=== PATIENT | male | born 1985 | race Caucasian/White ===

== ENCOUNTER 2017-10-12 07:56 | Emergency (ER) | payer MEDICAID ==
[~2017-10-12] VITALS: Ht 182.9 cm; Wt 78.2 kg
[2017-10-12 08:34] VITALS: BP 133/73
== END 2017-10-12 08:34 | disposition home or self-care (01) ==
LOC: ER 07:56
DX: Z02.89 Encounter for other administrative examinations (principal); F15.90 Other stimulant use, unspecified, uncomplicated; Z60.2 Problems related to living alone
CPT/HCPCS: 99281

== ENCOUNTER 2017-11-14 14:35 | Emergency (ER) | payer MEDICAID ==
[~2017-11-14] VITALS: Ht 167.6 cm; Wt 41.3 kg
[2017-11-14 15:54] LABS: BASOPHILS % (AUTO) 0.3 % (0-1); EOSINOPHILS # (AUTO) 0.3 X10'3 (0-0.9); EOSINOPHILS % (AUTO) 3.1 % (0-6); HEMATOCRIT 45.2 % (42.0-52.0); HEMOGLOBIN 15.7 g/dl (14.0-17.9); LYMPHOCYTES # (AUTO) 1.8 X10'3 (1.1-4.8); LYMPHOCYTES % (AUTO) 19.2 % (21-51); MEAN CORPUSCULAR HEMOGLOBIN 32.5 PG (27.0-31.0); MEAN CORPUSCULAR HGB CONC 34.7 % (33.0-36.5); MEAN CORPUSCULAR VOLUME 93.7 FL (78-98); MEAN PLATELET VOLUME 8.8 FL (7.4-10.4); MONOCYTES # (AUTO) 0.9 X10'3 (0-0.9); MONOCYTES % (AUTO) 9.9 % (2-12); NEUTROPHILS # (AUTO) 6.4 X10'3 (1.8-7.7); NEUTROPHILS % (AUTO) 67.5 % (42-75); PLATELET COUNT 187 X10'3 (140-440); RED BLOOD COUNT 4.83 X10'6 (4.70-6.10); WHITE BLOOD COUNT 9.4 X10'3 (4.5-11.0)
[2017-11-14 16:10] LABS: ALANINE AMINOTRANSFERASE 43 U/L (12-78); ALBUMIN 4.3 G/DL (3.4-5.0); ALBUMIN/GLOBULIN RATIO 1.2 (1.1-1.5); ALKALINE PHOSPHATASE 67 IU/L (46-116); ANION GAP 11 (8-16); ASPARTATE AMINO TRANSFERASE 27 U/L (10-37); BILIRUBIN,TOTAL 1.5 MG/DL (0.1-1.0); BLOOD UREA NITROGEN 30 MG/DL (7-18); BUN/CREATININE RATIO 21.3 (5.4-32.0); CHLORIDE 108 MMOL/L (99-107); CREATININE 1.41 MG/DL (0.60-1.10); GLUCOSE 121 MG/DL (70-104); POTASSIUM 4.1 MMOL/L (3.5-5.1); SODIUM 145 MMOL/L (135-145); TOTAL CARBON DIOXIDE 25.9 MMOL/L (24-32); TOTAL PROTEIN 7.8 G/DL (6.4-8.2); eGFR 58 ML/MIN
[2017-11-14 16:15] LABS: PARTIAL THROMBOPLASTIN TIME 25 SECONDS (22-32); PROTHROMBIN TIME 10.5 SECONDS (9.0-12.0)
[2017-11-14] MEDS ORDERED: HYDR-3686 PO (19:03)
[2017-11-14] MEDS ORDERED: DOXY100C43 PO (19:03)
[2017-11-14] MEDS ORDERED: hydrOXYzine 25 MG tablet PO ONE (19:05)
[2017-11-14 19:14] VITALS: BP 134/79
== END 2017-11-14 19:19 | disposition home or self-care (01) ==
LOC: ER 14:36
DX: L73.9 Follicular disorder, unspecified (principal); F15.10 Other stimulant abuse, uncomplicated; F17.210 Nicotine dependence, cigarettes, uncomplicated; Z60.2 Problems related to living alone
CPT/HCPCS: 36415; 80053; 84484; 85025; 85610; 85730; 93005; 99285; Q0177

== ENCOUNTER 2017-11-16 06:53 | Emergency (ER) | payer MEDICAID ==
[~2017-11-16] VITALS: Ht 185.4 cm; Wt 86.0 kg
[~2017-11-16 06:53] MED LIST: DOXY100C43 PO; HYDR-3686 PO
[2017-11-16 07:05] VITALS: BP 106/43
[2017-11-16 07:33] LABS: CLARITY,URINE CLEAR (Clear); COLOR,URINE YELLOW (Yellow); GLUCOSE, URINE NEGATIVE (Neg); KETONES,URINE 15 mg/dl (Neg); LEUKOCYTE ESTERASE ,URINE NEGATIVE (Neg); NITRITES, URINE NEGATIVE (Neg); OCCULT BLOOD,URINE NEGATIVE (Neg); PROTEIN,URINE 30 mg/dl (Neg); UROBILINOGEN,URINE 0.2 E.U/dL (0.2-1.0)
[2017-11-16 07:41] LABS: URINE AMPHETAMINE SCREEN POSITIVE (Neg); URINE BARBITUATE SCREEN NEGATIVE (Neg); URINE BENZODIAZEPINES SCREEN NEGATIVE (Neg); URINE CANNABINOID SCREEN NEGATIVE (Neg); URINE COCAINE SCREEN NEGATIVE (Neg); URINE METHADONE SCREEN NEGATIVE (Neg); URINE OPIATE SCREEN POSITIVE (Neg); URINE PHENCYCLIDINE SCREEN NEGATIVE (Neg)
[2017-11-16 07:46] LABS: UA COLLECTION TYPE VOIDED
[2017-11-16 07:47] LABS: BACTERIA,URINE NONE SEEN /HPF (Neg); MUCUS STRANDS FEW /LPF (Neg); RBC,URINE NONE SEEN /HPF (0-2); SQUAMOUS EPITHELIAL CELL,UR NONE SEEN /LPF (FEW); WBC,URINE NONE SEEN /HPF (0-4)
[2017-11-16 08:15] LABS: BASOPHILS % (AUTO) 0.3 % (0-1); EOSINOPHILS # (AUTO) 0.3 X10'3 (0-0.9); EOSINOPHILS % (AUTO) 1.9 % (0-6); HEMATOCRIT 42.5 % (42.0-52.0); HEMOGLOBIN 14.9 g/dl (14.0-17.9); LYMPHOCYTES # (AUTO) 0.7 X10'3 (1.1-4.8); LYMPHOCYTES % (AUTO) 4.4 % (21-51); MEAN CORPUSCULAR HEMOGLOBIN 32.6 PG (27.0-31.0); MEAN CORPUSCULAR HGB CONC 35.2 % (33.0-36.5); MEAN CORPUSCULAR VOLUME 92.5 FL (78-98); MEAN PLATELET VOLUME 8.9 FL (7.4-10.4); MONOCYTES # (AUTO) 0.8 X10'3 (0-0.9); MONOCYTES % (AUTO) 4.7 % (2-12); NEUTROPHILS # (AUTO) 14.5 X10'3 (1.8-7.7); NEUTROPHILS % (AUTO) 88.7 % (42-75); PLATELET COUNT 156 X10'3 (140-440); RED BLOOD COUNT 4.59 X10'6 (4.70-6.10); RED CELL DISTRIBUTION WIDTH 13.2 % (11.5-14.5); WHITE BLOOD COUNT 16.4 X10'3 (4.5-11.0)
[2017-11-16 08:26] LABS: ACETAMINOPHEN < 2.0 UG/ML (10-30); ALANINE AMINOTRANSFERASE 45 U/L (12-78); ALBUMIN 4.4 G/DL (3.4-5.0); ALBUMIN/GLOBULIN RATIO 1.4 (1.1-1.5); ALKALINE PHOSPHATASE 56 IU/L (46-116); ANION GAP 11 (8-16); ASPARTATE AMINO TRANSFERASE 41 U/L (10-37); BILIRUBIN,TOTAL 2.6 MG/DL (0.1-1.0); BLOOD UREA NITROGEN 35 MG/DL (7-18); BUN/CREATININE RATIO 24.6 (5.4-32.0); CALCIUM 8.9 MG/DL (8.5-10.1); CHLORIDE 104 MMOL/L (99-107); CREATINE KINASE 792 U/L (39-308); CREATININE 1.42 MG/DL (0.60-1.10); ETHANOL < 0.010 GM/DL (0.0-0.010); GLUCOSE 67 MG/DL (70-104); POTASSIUM 3.1 MMOL/L (3.5-5.1); SODIUM 141 MMOL/L (135-145); TOTAL CARBON DIOXIDE 25.9 MMOL/L (24-32); TOTAL PROTEIN 7.5 G/DL (6.4-8.2); eGFR 58 ML/MIN
[2017-11-16] MEDS ORDERED: normal saline 1000ML IV soln IVB ONE ×2 (08:30)
[2017-11-16] MEDS ORDERED: LORazepam 2 mg/ml vial IV ONE (08:30)
[2017-11-16] MEDS ORDERED: potassium Cl 20 mEq SR tablet PO STA (09:16)
[2017-11-16] MEDS ORDERED: PANT-47 PO (10:23)
[2017-11-16] MEDS ORDERED: ONDA8TAB9 PO (10:23)
== END 2017-11-16 09:47 | disposition left against medical advice (07) ==
LOC: ER 06:54
DX: F99 Mental disorder, not otherwise specified (principal); F15.10 Other stimulant abuse, uncomplicated; Z59.0 Homelessness
CPT/HCPCS: 36415; 80053; 80305; 80320; 80329; 81001; 82550; 84443; 85025; 96360; 99284; J7030

== ENCOUNTER 2017-12-19 01:30 | Emergency (ER) | payer MEDICAID, OTHER ==
[~2017-12-19] VITALS: Ht 182.9 cm; Wt 78.4 kg
[~2017-12-19 01:30] MED LIST changes: -DOXY100C43 PO; -HYDR-3686 PO; +NEOM28.37 TOP; +ONDA8TAB9 PO; +PANT-47 PO
[2017-12-19 07:01] VITALS: BP 124/68
== END 2017-12-19 07:03 | disposition home or self-care (01) ==
LOC: ER 01:31
DX: L02.92 Furuncle, unspecified (principal); F15.10 Other stimulant abuse, uncomplicated; Z79.899 Other long term (current) drug therapy; Z60.2 Problems related to living alone
CPT/HCPCS: 99281

== ENCOUNTER 2018-02-19 00:48 | Emergency (ER) | payer MEDICAID ==
[~2018-02-19] VITALS: Ht 182.9 cm; Wt 80.0 kg
[2018-02-19 03:13] VITALS: BP 114/68
== END 2018-02-19 03:26 | disposition left against medical advice (07) ==
LOC: ER 00:49
DX: R07.89 Other chest pain (principal); Z53.21 Procedure and treatment not carried out due to patient leaving prior to being seen by health care provider
CPT/HCPCS: 93005; 99281

== ENCOUNTER 2018-05-09 07:32 | Emergency (ER) | payer MEDICAID ==
[~2018-05-09] VITALS: Ht 182.9 cm; Wt 77.3 kg
[2018-05-09] MEDS ORDERED: acetaminophen 325mg tablet PO ONE (08:15)
[2018-05-09] MEDS ORDERED: ibuprofen tablet 400 MG TABLET PO ONE (08:15)
[2018-05-09 08:35] VITALS: BP 117/78
== END 2018-05-09 08:39 | disposition home or self-care (01) ==
LOC: ER 07:33
DX: L08.9 Local infection of the skin and subcutaneous tissue, unspecified (principal); L02.416 Cutaneous abscess of left lower limb; F15.90 Other stimulant use, unspecified, uncomplicated; Z79.899 Other long term (current) drug therapy; Z88.8 Allergy status to other drugs, medicaments and biological substances; Z88.5 Allergy status to narcotic agent
CPT/HCPCS: 99283

== ENCOUNTER 2018-10-27 04:11 | Emergency (ER) | payer MEDICAID ==
[~2018-10-27] VITALS: Ht 182.9 cm; Wt 77.0 kg
[~2018-10-27 04:11] MED LIST changes: +HYDR25CA PO
[2018-10-27 04:18] VITALS: BP 146/88
== END 2018-10-27 05:53 | disposition left against medical advice (07) ==
LOC: ER 04:12
DX: Z53.21 Procedure and treatment not carried out due to patient leaving prior to being seen by health care provider (principal)

== ENCOUNTER 2018-10-29 21:25 | Emergency (ER) | payer MEDICAID ==
[~2018-10-29] VITALS: Ht 185.4 cm; Wt 95.0 kg
[2018-10-29 21:37] VITALS: BP 106/76
[2018-10-29] MEDS ORDERED: LORA-269 PO (21:49)
== END 2018-10-29 22:03 | disposition home or self-care (01) ==
LOC: ER 21:25
DX: F15.10 Other stimulant abuse, uncomplicated (principal); G47.00 Insomnia, unspecified; F12.90 Cannabis use, unspecified, uncomplicated; F41.9 Anxiety disorder, unspecified; Z88.8 Allergy status to other drugs, medicaments and biological substances; Z79.899 Other long term (current) drug therapy; Z88.5 Allergy status to narcotic agent
CPT/HCPCS: 99283

== ENCOUNTER 2019-03-01 02:09 | Emergency (ER) | payer MEDICAID ==
[~2019-03-01] VITALS: Ht 167.6 cm; Wt 60.2 kg
[~2019-03-01 02:09] MED LIST changes: +LORA-269 PO
[2019-03-01 02:30] VITALS: BP 127/86
[2019-03-01] MEDS ORDERED: naproxen 500mg tablet PO ONE (05:25)
[2019-03-01] MEDS ORDERED: sulfamethoxazole/trimethoprim DS (800/160mg) tablet PO ONE (05:25)
[2019-03-01] MEDS ORDERED: HYDROcodone/acetaminophen 5mg/325mg tablet PO ONE (05:25)
[2019-03-01] MEDS ORDERED: NAPR-56 PO (05:28)
[2019-03-01] MEDS ORDERED: SULF1TAB48 PO (05:28)
[2019-03-01] MEDS ORDERED: LIDOcaine 1% w/epiNEPHrine 1:200,000 30ml vial IM ONE (05:30)
== END 2019-03-01 06:34 | disposition home or self-care (01) ==
LOC: ER 02:10
DX: L02.01 Cutaneous abscess of face (principal); F41.9 Anxiety disorder, unspecified; F12.90 Cannabis use, unspecified, uncomplicated; F15.90 Other stimulant use, unspecified, uncomplicated; F10.99 Alcohol use, unspecified with unspecified alcohol-induced disorder; Z60.2 Problems related to living alone; Z86.14 Personal history of Methicillin resistant Staphylococcus aureus infection; Z88.8 Allergy status to other drugs, medicaments and biological substances; Z79.899 Other long term (current) drug therapy; Y90.9 Presence of alcohol in blood, level not specified
CPT/HCPCS: 10060; 99284

== ENCOUNTER 2019-03-20 02:23 | Emergency (ER) | payer MEDICAID ==
[~2019-03-20] VITALS: Ht 182.9 cm; Wt 71.6 kg
[~2019-03-20 02:23] MED LIST changes: +NAPR-56 PO
[2019-03-20 02:34] VITALS: BP 127/77
== END 2019-03-20 04:31 | disposition home or self-care (01) ==
LOC: ER 02:23
DX: R07.89 Other chest pain (principal); R07.81 Pleurodynia; F41.9 Anxiety disorder, unspecified; F12.90 Cannabis use, unspecified, uncomplicated; F15.90 Other stimulant use, unspecified, uncomplicated; F17.200 Nicotine dependence, unspecified, uncomplicated; Z88.8 Allergy status to other drugs, medicaments and biological substances; Z79.899 Other long term (current) drug therapy; Z86.14 Personal history of Methicillin resistant Staphylococcus aureus infection; Z60.2 Problems related to living alone; X50.0XXA Overexertion from strenuous movement or load, initial encounter; Y93.89 Activity, other specified; Y92.89 Other specified places as the place of occurrence of the external cause; Y99.8 Other external cause status
CPT/HCPCS: 71046; 99283

== ENCOUNTER 2019-03-29 10:03 | Emergency (ER) | payer MEDICAID ==
[~2019-03-29] VITALS: Ht 182.9 cm; Wt 77.3 kg
[2019-03-29 10:15] VITALS: BP 134/81
[2019-03-29] MEDS ORDERED: TRIA15CR61 TP (10:45)
[2019-03-29] MEDS: diphenhydrAMINE 50 mg/ml inj IM ONE ×2 (11:08→11:17)
--- NOTE | 2019-03-29 11:15 | NUR ---
I ATTEMPTED TO MEDICATE PT WITH IM BENEDRYL, PT REFUSED THE MEDICATION AND SAID "I DON'T WANT ANYTHING" AND GATHERED HIS PERSONAL BELONGINGS FROM THE ROOM AND LEFT THE ED.
== END 2019-03-29 11:20 | disposition left against medical advice (07) ==
LOC: ER 10:03
DX: L23.3 Allergic contact dermatitis due to drugs in contact with skin (principal); T43.625A Adverse effect of amphetamines, initial encounter; F41.9 Anxiety disorder, unspecified; F12.90 Cannabis use, unspecified, uncomplicated; F15.90 Other stimulant use, unspecified, uncomplicated; Z88.6 Allergy status to analgesic agent; Z79.2 Long term (current) use of antibiotics; Z79.899 Other long term (current) drug therapy; Z86.14 Personal history of Methicillin resistant Staphylococcus aureus infection; Y92.89 Other specified places as the place of occurrence of the external cause
CPT/HCPCS: 99283; J1200

== ENCOUNTER 2020-03-17 18:43 | Emergency (ER) | payer MEDICAID ==
[~2020-03-17] VITALS: Ht 182.9 cm; Wt 84.1 kg
[~2020-03-17 18:43] MED LIST changes: -NAPR-56 PO
[2020-03-17 18:58] VITALS: BP 127/90
== END 2020-03-17 20:10 | disposition home or self-care (01) ==
LOC: ER 18:45
DX: F15.10 Other stimulant abuse, uncomplicated (principal); F12.90 Cannabis use, unspecified, uncomplicated; Z88.8 Allergy status to other drugs, medicaments and biological substances; Z79.899 Other long term (current) drug therapy
CPT/HCPCS: 99281

== ENCOUNTER 2020-04-20 03:35 | Emergency (ER) | payer MEDICAID ==
[~2020-04-20] VITALS: Ht 182.9 cm; Wt 78.6 kg
--- NOTE | 2020-04-20 03:55 | NUR ---
PATIENT STATES HE DID NOT TAKE ANYTHING OTC FOR HIS HEADACHE BECAUSE HE DID NOT HAVE ANYTHING. ADMITS TO USING METHAMPHETAMINES YESTERDAY.
[2020-04-20] MEDS ORDERED: acetaminophen 325mg tablet PO ONE (04:20)
[2020-04-20] MEDS ORDERED: ketorolac tromethamine 15mg/ml inj. IM ONE (04:20)
[2020-04-20 04:36] VITALS: BP 122/82
== END 2020-04-20 04:38 | disposition home or self-care (01) ==
LOC: ER 03:36
DX: G43.909 Migraine, unspecified, not intractable, without status migrainosus (principal); F41.9 Anxiety disorder, unspecified; F12.90 Cannabis use, unspecified, uncomplicated; F15.90 Other stimulant use, unspecified, uncomplicated; Z72.89 Other problems related to lifestyle; Z60.2 Problems related to living alone; Z86.14 Personal history of Methicillin resistant Staphylococcus aureus infection; Z88.8 Allergy status to other drugs, medicaments and biological substances; Z79.899 Other long term (current) drug therapy
CPT/HCPCS: 96372; 99283; J1885

== ENCOUNTER 2020-04-23 22:54 | Emergency (ER) | payer MEDICAID ==
[~2020-04-23] VITALS: Ht 182.9 cm; Wt 78.6 kg
[2020-04-23 22:58] VITALS: BP 125/92
[2020-04-23] MEDS ORDERED: acetaminophen 325mg tablet PO ONE (23:40)
[2020-04-23] MEDS ORDERED: ibuprofen tablet 400 MG TABLET PO ONE (23:40)
== END 2020-04-23 23:47 | disposition home or self-care (01) ==
LOC: ER 22:54
DX: G43.909 Migraine, unspecified, not intractable, without status migrainosus (principal); J02.9 Acute pharyngitis, unspecified; R05 Cough; F41.9 Anxiety disorder, unspecified; F12.90 Cannabis use, unspecified, uncomplicated; F15.90 Other stimulant use, unspecified, uncomplicated; Z72.89 Other problems related to lifestyle; Z60.2 Problems related to living alone; Z86.14 Personal history of Methicillin resistant Staphylococcus aureus infection; Z88.8 Allergy status to other drugs, medicaments and biological substances; Z79.899 Other long term (current) drug therapy
CPT/HCPCS: 99283

== ENCOUNTER 2021-05-31 15:09 | Emergency (ER) | payer MEDICAID ==
[2021-05-31] MEDS ORDERED: PANT-47 PO (15:30)
[2021-05-31] MEDS ORDERED: HYDR-3686 PO (15:30)
[2021-05-31 15:31] VITALS: BP 123/85
== END 2021-05-31 15:38 | disposition home or self-care (01) ==
LOC: ER 15:09
DX: F15.90 Other stimulant use, unspecified, uncomplicated (principal); F41.9 Anxiety disorder, unspecified; R10.13 Epigastric pain; G43.909 Migraine, unspecified, not intractable, without status migrainosus; K21.9 Gastro-esophageal reflux disease without esophagitis; Z86.14 Personal history of Methicillin resistant Staphylococcus aureus infection; Z60.2 Problems related to living alone; Z88.8 Allergy status to other drugs, medicaments and biological substances; Z79.2 Long term (current) use of antibiotics; Z79.899 Other long term (current) drug therapy
CPT/HCPCS: 99283

== ENCOUNTER 2021-08-16 10:10 | Emergency (ER) | payer MEDICAID | END 2021-08-16 12:37 | disposition left against medical advice (07) | LOC: ER 10:10 | DX: Z00.8 Encounter for other general examination (principal); Z53.21 Procedure and treatment not carried out due to patient leaving prior to being seen by health care provider ==

== ENCOUNTER 2021-10-09 16:34 | Emergency (ER) | payer MEDICAID ==
[~2021-10-09] VITALS: Ht 182.9 cm; Wt 85.0 kg
[2021-10-09 16:40] VITALS: BP 123/85
[2021-10-09] MEDS ORDERED: ketorolac trometh. 30mg/ml inj. IM ONE (17:25)
[2021-10-09] MEDS ORDERED: cephalexin 250mg capsule PO ONE (18:00)
[2021-10-09] MEDS ORDERED: CEPH250T PO (18:01)
== END 2021-10-09 19:00 | disposition home or self-care (01) ==
LOC: ER 16:34
DX: L08.89 Other specified local infections of the skin and subcutaneous tissue (principal); F41.9 Anxiety disorder, unspecified; G43.909 Migraine, unspecified, not intractable, without status migrainosus; K21.9 Gastro-esophageal reflux disease without esophagitis; F15.10 Other stimulant abuse, uncomplicated; Z88.8 Allergy status to other drugs, medicaments and biological substances; Z88.5 Allergy status to narcotic agent; Z79.899 Other long term (current) drug therapy
CPT/HCPCS: 71100; 96372; 99283; J1885

== ENCOUNTER 2021-11-16 22:45 | Emergency (ER) | payer MEDICAID ==
[~2021-11-16] VITALS: Ht 182.9 cm; Wt 84.9 kg
[2021-11-16] MEDS ORDERED: LORA-269 PO (23:03)
[2021-11-16 23:07] VITALS: BP 118/77
== END 2021-11-16 23:44 | disposition home or self-care (01) ==
LOC: ER 22:45
DX: F15.10 Other stimulant abuse, uncomplicated (principal); F41.9 Anxiety disorder, unspecified; G43.909 Migraine, unspecified, not intractable, without status migrainosus; K21.9 Gastro-esophageal reflux disease without esophagitis; Z88.8 Allergy status to other drugs, medicaments and biological substances
CPT/HCPCS: 99283

== ENCOUNTER 2021-12-15 03:46 | Emergency (ER) | payer MEDICAID ==
[~2021-12-15] VITALS: Ht 182.9 cm; Wt 84.1 kg
[2021-12-15 05:21] VITALS: BP 114/83
== END 2021-12-15 05:24 | disposition home or self-care (01) ==
LOC: ER 03:47
DX: M79.645 Pain in left finger(s) (principal); Z86.14 Personal history of Methicillin resistant Staphylococcus aureus infection; G43.909 Migraine, unspecified, not intractable, without status migrainosus; K21.9 Gastro-esophageal reflux disease without esophagitis; F41.9 Anxiety disorder, unspecified; F15.10 Other stimulant abuse, uncomplicated; V19.9XXA Pedal cyclist (driver) (passenger) injured in unspecified traffic accident, initial encounter; Y93.89 Activity, other specified; Y92.89 Other specified places as the place of occurrence of the external cause; Y99.8 Other external cause status
CPT/HCPCS: 73130; 99283

== ENCOUNTER 2022-01-10 00:23 | Emergency (ER) | payer MEDICAID ==
[~2022-01-10] VITALS: Ht 182.9 cm; Wt 84.1 kg
[2022-01-10 00:38] VITALS: BP 138/84
== END 2022-01-10 02:42 | disposition left against medical advice (07) ==
LOC: ER 00:24
DX: M79.601 Pain in right arm (principal); M79.602 Pain in left arm; Z53.21 Procedure and treatment not carried out due to patient leaving prior to being seen by health care provider

== ENCOUNTER 2022-01-31 04:36 | Emergency (ER) | payer MEDICAID | END 2022-01-31 05:19 | disposition left against medical advice (07) | LOC: ER 04:41 | DX: Z11.52 Encounter for screening for COVID-19 (principal); Z53.21 Procedure and treatment not carried out due to patient leaving prior to being seen by health care provider ==

== ENCOUNTER 2022-04-17 21:21 | Emergency (ER) | payer MEDICAID ==
[~2022-04-17] VITALS: Ht 182.9 cm; Wt 83.2 kg
[2022-04-17] MEDS ORDERED: DOXYCYCLINE 100MG CAPSULE PO STA (23:11)
[2022-04-17] MEDS ORDERED: DOXY100C76 PO (23:13)
[2022-04-17] MEDS ORDERED: CEPH500C2 PO (23:13)
[2022-04-17] MEDS ORDERED: cephalexin 500mg capsule PO ONE (23:15)
[2022-04-17 23:26] VITALS: BP 120/75
== END 2022-04-17 23:28 | disposition home or self-care (01) ==
LOC: ER 21:22
DX: L03.114 Cellulitis of left upper limb (principal); F41.9 Anxiety disorder, unspecified; G43.909 Migraine, unspecified, not intractable, without status migrainosus; K21.9 Gastro-esophageal reflux disease without esophagitis; F15.10 Other stimulant abuse, uncomplicated; Z86.14 Personal history of Methicillin resistant Staphylococcus aureus infection; Z88.6 Allergy status to analgesic agent; Z79.899 Other long term (current) drug therapy; Z88.1 Allergy status to other antibiotic agents; Z79.1 Long term (current) use of non-steroidal anti-inflammatories (NSAID)
CPT/HCPCS: 96372; 99283

== ENCOUNTER 2022-06-19 20:38 | Emergency (ER) | payer MEDICAID ==
[~2022-06-19] VITALS: Ht 182.9 cm; Wt 84.0 kg
[2022-06-19 20:42] VITALS: BP 118/84
== END 2022-06-19 22:57 | disposition left against medical advice (07) ==
LOC: ER 20:39
DX: M54.59 Other low back pain (principal); Z53.21 Procedure and treatment not carried out due to patient leaving prior to being seen by health care provider

== ENCOUNTER 2022-07-10 19:06 | Emergency (ER) | payer MEDICAID ==
[~2022-07-10] VITALS: Ht 182.9 cm; Wt 84.1 kg
[2022-07-10 20:03] VITALS: BP 133/62
[2022-07-10] MEDS ORDERED: ACET-1008 PO (22:22)
[2022-07-10] MEDS ORDERED: ONDA4TAB12 PO (22:22)
[2022-07-10] MEDS ORDERED: ondansetron 4mg rapidly disintigrating tab PO ONE (22:25)
== END 2022-07-10 22:38 | disposition home or self-care (01) ==
LOC: ER 19:06
DX: R11.2 Nausea with vomiting, unspecified (principal); G43.909 Migraine, unspecified, not intractable, without status migrainosus; K21.9 Gastro-esophageal reflux disease without esophagitis; F15.20 Other stimulant dependence, uncomplicated; Z88.8 Allergy status to other drugs, medicaments and biological substances
CPT/HCPCS: 99283

== ENCOUNTER 2022-10-07 04:57 | Emergency (ER) | payer MEDICAID ==
[~2022-10-07 04:57] MED LIST changes: +AZIT500T9 PO; +CEFD300C3 PO; -HYDR25CA PO; +LACT1CAP26 PO; -LORA-269 PO; -NEOM28.37 TOP; +OMEP40CA21 PO; -ONDA8TAB9 PO; -PANT-47 PO
== END 2022-10-07 05:49 | disposition left against medical advice (07) ==
LOC: ER 04:57
DX: M79.643 Pain in unspecified hand (principal); M79.673 Pain in unspecified foot; Z53.21 Procedure and treatment not carried out due to patient leaving prior to being seen by health care provider

== ENCOUNTER 2022-12-25 17:29 | Emergency (ER) | payer MEDICAID ==
[~2022-12-25] VITALS: Ht 182.9 cm; Wt 84.1 kg
[~2022-12-25 17:29] MED LIST changes: -CEFD300C3 PO
[2022-12-25 17:43] VITALS: BP 137/96
[2022-12-25] MEDS ORDERED: PERM60CR19 TOP ×2 (18:36)
[2022-12-26] MEDS ORDERED: PERM60CR19 TOP (18:35)
== END 2022-12-25 18:53 | disposition home or self-care (01) ==
LOC: ER 17:30
DX: R21 Rash and other nonspecific skin eruption (principal); K21.9 Gastro-esophageal reflux disease without esophagitis; G43.909 Migraine, unspecified, not intractable, without status migrainosus; F41.9 Anxiety disorder, unspecified; F15.10 Other stimulant abuse, uncomplicated; Z86.14 Personal history of Methicillin resistant Staphylococcus aureus infection; Z88.8 Allergy status to other drugs, medicaments and biological substances; Z79.899 Other long term (current) drug therapy; Z79.1 Long term (current) use of non-steroidal anti-inflammatories (NSAID)
CPT/HCPCS: 99283

== ENCOUNTER 2023-03-01 19:37 | Emergency (ER) | payer MEDICAID ==
[~2023-03-01 19:37] MED LIST changes: +PERM60CR19 TOP
== END 2023-03-01 19:47 | disposition left against medical advice (07) ==
LOC: ER 19:37
DX: R21 Rash and other nonspecific skin eruption (principal); Z53.21 Procedure and treatment not carried out due to patient leaving prior to being seen by health care provider

== ENCOUNTER 2023-03-04 16:36 | Emergency (ER) | payer MEDICAID ==
[~2023-03-04] VITALS: Ht 182.9 cm; Wt 86.3 kg
[2023-03-04 16:51] VITALS: BP 133/84
[2023-03-04] MEDS ORDERED: ketorolac trometh inj. 60 MG/2 ML VIAL IM ONE (17:35)
[2023-03-04] MEDS ORDERED: cephalexin 250mg capsule PO ONE (17:35)
[2023-03-04] MEDS ORDERED: CEPH-585 PO (17:39)
[2023-03-04] MEDS ORDERED: IBUP-1986 PO (17:39)
== END 2023-03-04 17:58 | disposition home or self-care (01) ==
LOC: ER 16:37
DX: L02.415 Cutaneous abscess of right lower limb (principal); G43.909 Migraine, unspecified, not intractable, without status migrainosus; K21.9 Gastro-esophageal reflux disease without esophagitis; F31.9 Bipolar disorder, unspecified; F15.10 Other stimulant abuse, uncomplicated; Z86.14 Personal history of Methicillin resistant Staphylococcus aureus infection; Z88.8 Allergy status to other drugs, medicaments and biological substances; Z79.899 Other long term (current) drug therapy
CPT/HCPCS: 96372; 99283; J1885

== ENCOUNTER 2023-04-23 06:07 | Emergency (ER) | payer MEDICAID ==
[~2023-04-23] VITALS: Ht 182.9 cm; Wt 74.4 kg
[~2023-04-23 06:07] MED LIST changes: +CEPH-585 PO; +IBUP-1986 PO
[2023-04-23 06:15] VITALS: BP 140/89; PULSE 109; RESP 18; TEMP 98; O2SAT 98
[2023-04-23] MEDS ORDERED: DOXY100C77 PO (06:42)
[2023-04-23] MEDS ORDERED: DOXY-356 PO (06:48)
[2023-04-23] MEDS ORDERED: DOXY500P4 PO (06:54)
== END 2023-04-23 07:02 | disposition home or self-care (01) ==
LOC: ER 06:08
DX: F15.23 Other stimulant dependence with withdrawal (principal); G43.909 Migraine, unspecified, not intractable, without status migrainosus; K21.9 Gastro-esophageal reflux disease without esophagitis; Z88.8 Allergy status to other drugs, medicaments and biological substances; Z79.1 Long term (current) use of non-steroidal anti-inflammatories (NSAID); Z79.2 Long term (current) use of antibiotics; Z79.899 Other long term (current) drug therapy
CPT/HCPCS: 99283

== ENCOUNTER 2023-11-12 13:13 | Emergency (ER) | payer MEDICAID ==
[~2023-11-12] VITALS: Ht 182.9 cm; Wt 87.7 kg
[~2023-11-12 13:13] MED LIST changes: +DOXY500P4 PO
[2023-11-12 13:17] VITALS: BP 118/83; PULSE 91; RESP 16; TEMP 98.8; O2SAT 100
[2023-11-12] MEDS ORDERED: CEFD300C3 PO (14:00)
== END 2023-11-12 14:35 | disposition home or self-care (01) ==
LOC: ER 13:14
DX: J01.90 Acute sinusitis, unspecified (principal); J20.9 Acute bronchitis, unspecified
CPT/HCPCS: 99283

== ENCOUNTER 2024-02-08 13:07 | Emergency (ER) | payer MEDICAID ==
[~2024-02-08] VITALS: Ht 182.9 cm; Wt 86.4 kg
[2024-02-08 13:09] VITALS: TEMP 97
[2024-02-08 13:24] VITALS: BP 119/85; PULSE 77; RESP 18; O2SAT 99
== END 2024-02-08 13:44 | disposition home or self-care (01) ==
LOC: ER 13:07
DX: F15.10 Other stimulant abuse, uncomplicated (principal); K21.9 Gastro-esophageal reflux disease without esophagitis; F41.9 Anxiety disorder, unspecified; Z72.89 Other problems related to lifestyle; Z88.8 Allergy status to other drugs, medicaments and biological substances; Z79.899 Other long term (current) drug therapy; Z79.2 Long term (current) use of antibiotics
CPT/HCPCS: 99281

== ENCOUNTER 2024-02-19 03:50 | Emergency (ER) | payer MEDICAID ==
[~2024-02-19] VITALS: Ht 182.9 cm; Wt 86.0 kg
[2024-02-19 03:55] VITALS: BP 133/93; PULSE 109; RESP 18; TEMP 98.4; O2SAT 98
== END 2024-02-19 05:53 | disposition left against medical advice (07) ==
LOC: ER 03:51
DX: M54.50 Low back pain, unspecified (principal); Z53.21 Procedure and treatment not carried out due to patient leaving prior to being seen by health care provider

== ENCOUNTER 2024-04-22 22:10 | Emergency (ER) | payer MEDICAID ==
[~2024-04-22] VITALS: Ht 182.9 cm; Wt 85.4 kg
[~2024-04-22 22:10] MED LIST changes: -CEPH-585 PO
[2024-04-22 22:12] VITALS: BP 132/94; PULSE 109; RESP 16; TEMP 98.8; O2SAT 97
== END 2024-04-22 23:40 | disposition left against medical advice (07) ==
LOC: ER 22:10
DX: G43.909 Migraine, unspecified, not intractable, without status migrainosus (principal); Z53.21 Procedure and treatment not carried out due to patient leaving prior to being seen by health care provider

== ENCOUNTER 2024-04-22 23:55 | Emergency (ER) | payer MEDICAID ==
[~2024-04-22] VITALS: Ht 182.9 cm; Wt 85.0 kg
[2024-04-22 23:58] VITALS: BP 138/95; PULSE 99; RESP 16; TEMP 98.5; O2SAT 98
== END 2024-04-23 00:43 | disposition left against medical advice (07) ==
LOC: ER 23:56
DX: G43.909 Migraine, unspecified, not intractable, without status migrainosus (principal); Z53.21 Procedure and treatment not carried out due to patient leaving prior to being seen by health care provider

== ENCOUNTER 2024-06-02 22:45 | Emergency (ER) | payer MEDICAID ==
[~2024-06-02] VITALS: Ht 182.9 cm; Wt 88.6 kg
[2024-06-02 22:51] VITALS: TEMP 98.1
[2024-06-02 23:22] LABS: BASOPHILS % (AUTO) 0.4 % (0-1); EOSINOPHILS # (AUTO) 0.1 X10'3 (0-0.9); EOSINOPHILS % (AUTO) 2.6 % (0-6); HEMATOCRIT 42.5 % (42.0-52.0); HEMOGLOBIN 14.5 g/dl (14.0-17.9); LYMPHOCYTES # (AUTO) 1.3 X10'3 (1.1-4.8); LYMPHOCYTES % (AUTO) 29.3 % (21-51); MEAN CORPUSCULAR HEMOGLOBIN 32.2 PG (27.0-31.0); MEAN CORPUSCULAR HGB CONC 34.2 g/dL (33.0-36.5); MEAN CORPUSCULAR VOLUME 94.2 FL (78-98); MEAN PLATELET VOLUME 9.5 FL (7.4-10.4); MONOCYTES # (AUTO) 0.3 X10'3 (0-0.9); MONOCYTES % (AUTO) 7.9 % (2-12); NEUTROPHILS # (AUTO) 2.6 X10'3 (1.8-7.7); NEUTROPHILS % (AUTO) 59.8 % (42-75); PLATELET COUNT 175 X10'3 (140-440); RED BLOOD COUNT 4.51 X10'6 (4.70-6.10); RED CELL DISTRIBUTION WIDTH 12.5 % (11.5-14.5); WHITE BLOOD COUNT 4.4 X10'3 (4.5-11.0)
[2024-06-02 23:39] LABS: ALANINE AMINOTRANSFERASE 25 U/L (12-78); ALBUMIN 4.3 G/DL (3.4-5.0); ALBUMIN/GLOBULIN RATIO 1.4 (1.1-1.5); ALKALINE PHOSPHATASE 57 IU/L (46-116); ANION GAP 6 (8-16); ASPARTATE AMINO TRANSFERASE 22 U/L (10-37); BILIRUBIN,TOTAL 0.7 MG/DL (0.1-1.0); BLOOD UREA NITROGEN 24 MG/DL (7-18); BUN/CREATININE RATIO 21.6 (10.0-20.0); CALCIUM 9.1 MG/DL (8.5-10.1); CHLORIDE 107 MMOL/L (99-107); CREATININE 1.11 MG/DL (0.60-1.10); GLUCOSE 103 MG/DL (70-104); LIPASE 54 U/L (16-77); POTASSIUM 3.8 MMOL/L (3.5-5.1); SODIUM 141 MMOL/L (135-145); TOTAL CARBON DIOXIDE 27.8 MMOL/L (24-32); TOTAL PROTEIN 7.3 G/DL (6.4-8.2); eCRCL 98 ML/MIN; eGFR 74 ML/MIN
[2024-06-03 02:48] VITALS: BP 130/78; PULSE 68; RESP 18; O2SAT 98
== END 2024-06-03 02:51 | disposition home or self-care (01) ==
LOC: ER 22:46
DX: R07.89 Other chest pain (principal); G43.909 Migraine, unspecified, not intractable, without status migrainosus; K21.9 Gastro-esophageal reflux disease without esophagitis; F41.9 Anxiety disorder, unspecified; F15.90 Other stimulant use, unspecified, uncomplicated; Z88.8 Allergy status to other drugs, medicaments and biological substances; Z79.2 Long term (current) use of antibiotics; Z79.1 Long term (current) use of non-steroidal anti-inflammatories (NSAID); Z79.899 Other long term (current) drug therapy
CPT/HCPCS: 36415; 80053; 83690; 85025; 99283

== ENCOUNTER 2024-06-03 20:31 | Emergency (ER) | payer MEDICAID ==
[~2024-06-03] VITALS: Ht 182.9 cm; Wt 88.1 kg
[2024-06-03 20:58] VITALS: BP 117/76; PULSE 78; RESP 16; TEMP 98; O2SAT 98
[2024-06-03] MEDS: ibuprofen tablet 400 MG TABLET PO ONE (22:02)
== END 2024-06-03 22:08 | disposition home or self-care (01) ==
LOC: ER 20:31
DX: M79.671 Pain in right foot (principal); M79.672 Pain in left foot; G43.909 Migraine, unspecified, not intractable, without status migrainosus; K21.9 Gastro-esophageal reflux disease without esophagitis; F15.90 Other stimulant use, unspecified, uncomplicated; Z88.6 Allergy status to analgesic agent; Z88.8 Allergy status to other drugs, medicaments and biological substances; Z79.2 Long term (current) use of antibiotics; Z79.899 Other long term (current) drug therapy; Z59.00 Homelessness unspecified
CPT/HCPCS: 99282

== ENCOUNTER 2024-07-01 15:36 | Emergency (ER) | payer MEDICAID ==
[~2024-07-01] VITALS: Ht 182.9 cm; Wt 85.3 kg
[2024-07-01 15:42] VITALS: BP 120/81; PULSE 83; RESP 18; TEMP 97.8; O2SAT 99
== END 2024-07-01 16:55 | disposition home or self-care (01) ==
LOC: ER 15:36
DX: M79.675 Pain in left toe(s) (principal); K21.9 Gastro-esophageal reflux disease without esophagitis; G43.909 Migraine, unspecified, not intractable, without status migrainosus; F15.90 Other stimulant use, unspecified, uncomplicated; Z88.8 Allergy status to other drugs, medicaments and biological substances; Z79.899 Other long term (current) drug therapy; Z79.2 Long term (current) use of antibiotics; Z79.1 Long term (current) use of non-steroidal anti-inflammatories (NSAID)
CPT/HCPCS: 99281

== ENCOUNTER 2024-07-25 20:37 | Emergency (ER) | payer MEDICAID ==
[~2024-07-25] VITALS: Ht 182.9 cm; Wt 85.0 kg
[2024-07-25 20:42] VITALS: BP 119/77; PULSE 88; RESP 16; O2SAT 98
[2024-07-25 23:27] VITALS: TEMP 97.8
== END 2024-07-25 23:29 | disposition left against medical advice (07) ==
LOC: ER 20:38
DX: M79.673 Pain in unspecified foot (principal); Z88.8 Allergy status to other drugs, medicaments and biological substances; Z53.21 Procedure and treatment not carried out due to patient leaving prior to being seen by health care provider

== ENCOUNTER 2024-08-11 01:08 | Emergency (ER) | payer MEDICAID ==
[~2024-08-11] VITALS: Ht 182.9 cm; Wt 93.2 kg
[2024-08-11 01:15] VITALS: BP 127/91; PULSE 92; TEMP 98.2; O2SAT 100
[2024-08-11] MEDS: diphenhydrAMINE 25mg capsule PO ONE (01:52)
[2024-08-11 02:37] VITALS: RESP 18
[2024-08-11 02:41] LABS: BILIRUBIN,URINE NEGATIVE (Neg); CLARITY,URINE CLEAR (Clear); COLOR,URINE YELLOW (Yellow); GLUCOSE, URINE NEGATIVE (Neg); KETONES,URINE NEGATIVE (Neg); LEUKOCYTE ESTERASE ,URINE NEGATIVE (Neg); NITRITES, URINE NEGATIVE (Neg); OCCULT BLOOD,URINE NEGATIVE (Neg); PROTEIN,URINE NEGATIVE (Neg); UROBILINOGEN,URINE 0.2 E.U/dL (0.2-1.0)
[2024-08-11 02:45] LABS: UA COLLECTION TYPE VOIDED; URINE AMPHETAMINE SCREEN POSITIVE (Neg); URINE BARBITUATE SCREEN NEGATIVE (Neg); URINE BENZODIAZEPINES SCREEN NEGATIVE (Neg); URINE CANNABINOID SCREEN NEGATIVE (Neg); URINE COCAINE SCREEN NEGATIVE (Neg); URINE METHADONE SCREEN NEGATIVE (Neg); URINE OPIATE SCREEN NEGATIVE (Neg); URINE PHENCYCLIDINE SCREEN NEGATIVE (Neg)
== END 2024-08-11 02:39 | disposition left against medical advice (07) ==
LOC: ER 01:09
DX: R07.0 Pain in throat (principal); Z53.21 Procedure and treatment not carried out due to patient leaving prior to being seen by health care provider; Z88.8 Allergy status to other drugs, medicaments and biological substances
CPT/HCPCS: 71045; 80305; 81003; Q0163

== ENCOUNTER 2024-10-17 19:14 | Emergency (ER) | payer MEDICAID ==
[~2024-10-17] VITALS: Ht 182.9 cm; Wt 79.8 kg
[2024-10-17 19:26] VITALS: BP 115/78; PULSE 53; RESP 15; O2SAT 98
[2024-10-17 20:07] VITALS: TEMP 98.6
== END 2024-10-17 20:10 | disposition home or self-care (01) ==
LOC: ER 19:14
DX: M76.61 Achilles tendinitis, right leg (principal); K21.9 Gastro-esophageal reflux disease without esophagitis; F41.9 Anxiety disorder, unspecified; G43.909 Migraine, unspecified, not intractable, without status migrainosus; F15.90 Other stimulant use, unspecified, uncomplicated; Z60.2 Problems related to living alone; Z72.89 Other problems related to lifestyle; Z88.8 Allergy status to other drugs, medicaments and biological substances
CPT/HCPCS: 99282

== ENCOUNTER 2024-12-25 03:25 | Emergency (ER) | payer MEDICAID ==
[~2024-12-25] VITALS: Ht 182.9 cm; Wt 88.5 kg
[2024-12-25 03:31] VITALS: BP 142/78; PULSE 109; RESP 15; TEMP 96.8; O2SAT 99
[2024-12-25] MEDS ORDERED: NAPR-56 PO (03:46)
[2024-12-25] MEDS ORDERED: CYCL-394 PO (03:46)
--- NOTE | 2024-12-25 03:46 | Physician Documentation ---
History of Present Illness ~ Chief Complaint: Back Pain Stated Complaint: LOWER BACK PAIN Time Seen by MD: 03:42 Primary Medical Doctor: [facility] HPI 37-year-old male who presents for evaluation of low back pain that began yesterday without any obvious trigger, trauma provocation. He states that he was lying in bed, turned, and developed back pain. The back pain is nonradiating not migratory, not ripping or tearing. Denies loss of bowel or bladder control, denies urinary retention, denies saddle paresthesias, denies history of IV drug use of blood dyscrasias of which I inquired in plain Persian. No particular palliating or aggravating factors were elicited with the patient. He did not attempt to treat it with any [id number] medications whatsoever. Denies any other concerns. He denies use alcohol or illicit substances. Medication Reconciliation Allergies: Coded Allergies: bupropion (Verified Allergy, Unknown, swelling,hives, 12/25/24) lurasidone (Verified Allergy, Unknown, swelling,hives, 12/25/24) Past Medical History Past Medical History: Migraine, GERD, MRSA Abscess, Anxiety Past Surgical History: no surgical history Alcohol Use: Occasionally Drug Use: methamphetamine Lives with: Alone Lives In: Home Occupation: employed Review of Systems ROS 10 point review of systems was performed and unless noted above in HPI is negative for acute process/complaint. Physical Exam Physical Exam Vital Signs: Temperature: 96.8, Source: Temporal, Heart Rate: 109, Respiratory Rate: 15, BP: 142/78, Pulse Oximetry: 99, Weight: 88.500 Physical Exam Physical examination: GENERAL: Awake, alert, oriented, GCS 15, no apparent distress, non-toxic appearing, answers questions, follows commands appropriately. HEENT: Atraumatic, normocephalic, pupils equal, extraocular muscles intact Active gross movements, sclerae anicteric, mucus membranes moist, no stridor. NECK: Midline, no JVD CARDIOVASCULAR: Good skin perfusion without evidence of pallor, mottling. PULMONARY: Nonlabored, symmetric chest rise, no audible wheezing, no accessory muscle use, no respiratory distress, speaking in full sentences. GASTROINTESTINAL: Not distended. NEUROLOGIC: Lucid with normal mental status. Normal facial symmetry. Moves all extremities symmetrically and with purpose. No truncal ataxia. Speech is fluid without evidence of dysarthria or aphasia, no focal deficits appreciated. EXTREMITIES: Acute deformities Skin: warm, dry PSYCHIATRIC: Normal affect, normal insight, normal concentration. Focused exam: Normal gait without ataxia or antalgia Progress Results/Orders Results/Orders Vital Signs 12/25/24 03:31 Temp 96.8 Pulse 109 Resp 15 B/P (MAP) 142/78 Pulse Ox 99 Medical Decision Making Findings Facility Status: ED Holds, RME process The plan was discussed with the patient, who demonstrates clear understanding of the plan and is in agreement with the plan unless otherwise noted in the chart. All questions have been answered, all concerns were addressed unless otherwise documented. I was available throughout their ED stay for frequent reassessment and questions. Differential Diagnoses (considered and possible or likely): [Lower back pain including musculoskeletal pain, sciatica, radicular pain, highly unlikely to represent lumbar spine fracture or subluxation, the gentleman denies all the back pain red flags, and clinically there is no evidence of cauda equina or conus medullaris.] ??Differential Diagnoses (considered and unlikely, not requiring evaluation currently): [No evidence of traumatic injury] MDM Data Please see [facility] for the following: Independent Historians and external Records Review. Historian: [Patient] Independent Historians: ?[Record review] Medication Management: [Reviewed medication list] Social History and determinants: [Reviewed] Please see the body of the note for the following: Any independent interpretations of ECG, imaging studies. All vitals signs/haemodynamics, ordered tests were independently reviewed and interpreted by myself. Nursing triage complaint and vitals reviewed, additional nursing notes were reviewed as available and I agree unless otherwise noted or documented in contra diction in the chart Vital Signs: Independently reviewed Labs: Independently interpreted Imaging: Independently interpreted Old Medical Records: Independently reviewed, see HPI for relevant summary and information Pulse Oximetry: [98%] interpreted as [normal on room air] by me Additionally notably showing: [Hemodynamically stable] Tests considered but not ordered include: [Hematologic workup and imaging has been considered but does not appear to be necessary given clinical nature of diagnosis] Social Determinants of Health Impact: Patient was evaluated in [facility] [place] healthcare due to below par ratio of patient to medical providers. [] Comorbid Conditions Impacting Present Evaluation and Care/Treatment: [History of back pain in the past, last visit for back pain was in 2023] Management Discussions with other Healthcare Providers: [None] Treatment and Disposition Medication Management (Given or considered): [Pain management]. See EMR for details Consideration for Hospitalization/Escalation/Deescalation of Care: Admission for observation has been considered, [however the patient is able to tolerate p.o., their symptoms are controlled, they are able to rely on oral medications, and their chief complaint/diagnosis can be managed on outpatient basis.] ?ED Course:?[No clinical deterioration] ?Shared decision making:?[Patient is hemodynamically stable for discharge home with follow with their primary care provider. [ ] Specific and cautious return precautions provided and discussed with full understanding. Any incidental findings were also discussed and follow up recommendations given. [] All questions answered. Patient/family were able to verbalize back return precautions. Patient/family agree to plan. Copies of imaging and laboratory studies were provided.] Code status:?FULL Please see the full Electronic Medical Record for full details of nursing documentation, medications list, other records of complete past medical history and conditions, vital signs, laboratory studies, and any radiologic study interpretations by radiologists. Portions of this note were completed using [employer] dictation software and as a result there may exist minor errors in spelling. I have reviewed elements of past family and social history and agree as included in note. Departure Disposition: 01 HOME / SELF CARE / HOMELESS Impression: Primary Impression: Acute on chronic back pain Condition: Improved Discharge Instructions: Acute Back Pain, Adult, Back Exercises Referrals: NO PRIMARY CARE PROVIDER (PCP) Prescriptions Cyclobenzaprine HCl (Cyclobenzaprine HCl) 10 Mg Tablet 1 TAB PO Q8H for muscle spasms for 10 Days, #30 TAB Prov: BE ÁLVAREZ DO 12/25/24 Naproxen (Naproxen) 500 Mg Tablet 1 TAB PO Q12H, #20 TAB Prov: BE ÁLVAREZ DO 12/25/24 Education Educated: Patient Educated regarding: diagnosis, treatment, prognosis, need for follow up Signature Scribe Signature: No scribe Attestation: This note accurately reflects clinical decisions, work performed by myself, DO HENRI Arellano NICHOLAS M DO December 25, 2024 03:46
[2024-12-25] MEDS: ketorolac trometh 30MG/ML vial 30 MG/ML VIAL IM ONE (04:22)
== END 2024-12-25 04:24 | disposition home or self-care (01) ==
LOC: ER 03:26
DX: G89.29 Other chronic pain (principal); M54.50 Low back pain, unspecified; G43.909 Migraine, unspecified, not intractable, without status migrainosus; F41.9 Anxiety disorder, unspecified; K21.9 Gastro-esophageal reflux disease without esophagitis; Z88.8 Allergy status to other drugs, medicaments and biological substances; F15.90 Other stimulant use, unspecified, uncomplicated; Z72.89 Other problems related to lifestyle; Z60.2 Problems related to living alone
CPT/HCPCS: 96372; 99283; J1885

== ENCOUNTER 2024-12-29 22:00 | Emergency (ER) | payer MEDICAID ==
[~2024-12-29] VITALS: Ht 182.9 cm; Wt 96.0 kg
[~2024-12-29 22:00] MED LIST changes: -AZIT500T9 PO; +CYCL-394 PO; -DOXY500P4 PO; -IBUP-1986 PO; -LACT1CAP26 PO; +NAPR-56 PO; -OMEP40CA21 PO; -PERM60CR19 TOP
[2024-12-29 22:03] VITALS: BP 139/93; PULSE 100; RESP 16; TEMP 98.2; O2SAT 98
[2024-12-29] MEDS ORDERED: PRED20TA PO (23:26)
--- NOTE | 2024-12-29 23:26 | Physician Documentation ---
History of Present Illness ~ Chief Complaint: Rash Stated Complaint: RASH Time Seen by MD: 23:15 Primary Medical Doctor: [facility] HPI This 39-year-old male presents with a diffuse red rash to his left axilla onset earlier today, patient reports possible exposure to poison oak though unknown, patient reports that this is similar to previous poison oak rash that he has had. Patient additionally reports several scattered erythematous pruritic papules. Patient reports no fever, chills, other systemic symptoms. Patient reports no other acute symptoms or concerns. Medication Reconciliation Allergies: Coded Allergies: bupropion (Verified Allergy, Unknown, swelling,hives, 12/25/24) lurasidone (Verified Allergy, Unknown, swelling,hives, 12/25/24) Scheduled Cyclobenzaprine HCl (Cyclobenzaprine HCl), 1 TAB PO Q8H Naproxen (Naproxen), 1 TAB PO Q12H Prednisone* (Prednisone*), 3 TAB PO DAILY Past Medical History Past Medical History: Migraine, GERD, MRSA Abscess, Anxiety Past Surgical History: no surgical history Alcohol Use: Occasionally Drug Use: methamphetamine Lives with: Alone Lives In: Home Occupation: employed Review of Systems ROS Rash to left axilla as stated above in the HPI, otherwise all systems are reviewed and negative. Physical Exam Vital Signs: Temperature: 98.2, Source: Temporal, Heart Rate: 100, Respiratory Rate: 16, BP: 139/93, Pulse Oximetry: 98, Weight: 96.000 Oxygen Flow Rate: 0 Physical Exam VITALS: Reviewed and as above. GENERAL: Alert, nontoxic appearing, no apparent distress. RESPIRATORY: No increased work of breathing, no respiratory distress, speaking in full clear sentences SKIN: Diffuse erythematous pruritic rash to left axilla, scattered erythematous pruritic papules to wrist and ankles bilaterally Progress Results/Orders Results/Orders Completed Orders - JASE ARREGUIN Prednisone Tablet (Prednisone Tablet) (12/29/24 23:30) Medications Received in ER Medications (Trade) Dose Ordered Sig/Jose Route PRN Reason Start Time Stop Time Status Last Admin Dose Admin (predniSONE tablet) 60 mg ONCE ONCE PO 12/29/24 23:30 12/29/24 23:31 DC 12/29/24 23:33 60 MG Vital Signs 12/29/24 22:03 Temp 98.2 Pulse 100 Resp 16 B/P (MAP) 139/93 Pulse Ox 98 O2 Flow Rate 0 Medical Decision Making Findings This 39-year-old male presented with a rash to his left axilla for the past day, patient does report possible poison oak exposure and rash is consistent with poison oak dermatitis. Remainder of physical exam was benign. There is no evidence of rapidly progressing symptoms, crepitus, pain out of proportion, pain away from site or other signs/symptoms concerning for necrot izing fasciitis or myositis. No mucosal involvement, blisters or bullae, sloughing skin, or appearance concerning for SJS, TEN, SSSS, pemphigus vulgaris, or bullous pemphigoid. No airway compromise, angioedema or systemic signs/symptoms concerning for anap hylaxis. The patient is well-appearing and is hemodynamically stable. I discussed with patient regarding potential diagnosis and discharge plan. Patient given strict return precautions including rapidly progressing symptoms, pain out of proportion/severe pain, mucosal involvement, and/or fever>100.4. Differential Dx:Considerations: Include: Abscess, Atopic dermatitis, Contact dermatitis, Erysipelas, Gangrene, Herpes zoster, Herpes simplex, Tinea, Viral exanthema Departure Time of Disposition: 23:25 Disposition: 01 HOME / SELF CARE / HOMELESS Impression: Primary Impression: Poison oak dermatitis Condition: Improved Discharge Instructions: Poison [place] Dermatitis, [id number] Additional Instructions: Take the prednisone as prescribed. Keep the area clean and dry. You may additionally use an antihistamine such as Claritin or Juani which may help with your symptoms. Please follow up with your primary care provider in the next few days. Please return to the emergency department for any new or worsening concerning symptoms. Referrals: NO PRIMARY CARE PROVIDER (PCP) Prescriptions Prednisone* (Prednisone*) 20 Mg Tablet 3 TAB PO DAILY, #15 TAB Prov: JASE ARREGUIN 12/29/24 Education Educated: Patient Educated regarding: diagnosis, treatment, prognosis, need for follow up Signature Scribe Signature: No scribe Attestation: The note accurately reflects work and decisions made by me.INGRID Bess 12/30/24 00:38 JASE ARREGUIN December 29, 2024 23:26
[2024-12-29] MEDS: predniSONE 20 mg tablet PO ONE (23:33)
== END 2024-12-29 23:35 | disposition home or self-care (01) ==
LOC: ER 22:01
DX: L23.7 Allergic contact dermatitis due to plants, except food (principal); Z88.8 Allergy status to other drugs, medicaments and biological substances
CPT/HCPCS: 99283; J7512

== ENCOUNTER 2025-01-29 13:14 | Emergency (ER) | payer MEDICAID ==
[~2025-01-29] VITALS: Ht 182.9 cm; Wt 88.1 kg
[~2025-01-29 13:14] MED LIST changes: -CYCL-394 PO; -NAPR-56 PO; +PRED20TA PO
[2025-01-29 13:19] VITALS: BP 121/83; PULSE 80; RESP 16; TEMP 97.9; O2SAT 100
--- NOTE | 2025-01-29 13:31 | Physician Documentation ---
History of Present Illness ~ Chief Complaint: Rash Stated Complaint: POISON OAK Time Seen by MD: 13:25 Primary Medical Doctor: [facility] HPI This is a 39-year-old male presents with 2-3 days of rash to his left arm, chest, and right leg after exposure to poison oak. Medication Reconciliation Allergies: Coded Allergies: bupropion (Verified Allergy, Unknown, swelling,hives, 01/29/25) lurasidone (Verified Allergy, Unknown, swelling,hives, 01/29/25) Scheduled Prednisone* (Prednisone*), 3 TAB PO DAILY Discontinued Medications Naproxen (Naproxen), 1 TAB PO Q12H Discontinued Reason: Auto Discontinued Prednisone* (Prednisone*), 3 TAB PO DAILY Discontinued Reason: Auto Discontinued Past Medical History Past Medical History: Migraine, GERD, MRSA Abscess, Anxiety Past Surgical History: no surgical history Alcohol Use: Occasionally Drug Use: methamphetamine Lives with: Alone Lives In: Home Occupation: employed Review of Systems ROS Rash as stated above in the HPI, otherwise all systems are reviewed and negative. Physical Exam Vital Signs: Temperature: 97.9, Source: Oral, Heart Rate: 80, Respiratory Rate: 16, BP: 121/83, Pulse Oximetry: 100, Weight: 88.100 Oxygen Flow Rate: 0 Physical Exam VITALS: Reviewed and as above. GENERAL: Alert, nontoxic appearing, no apparent distress. RESPIRATORY: No increased work of breathing, no respiratory distress, speaking in full clear sentences SKIN: Diffuse pruritic rash to interior left arm, upper left chest, and lower right abdomen Progress Results/Orders Results/Orders Vital Signs 01/29/25 13:19 Temp 97.9 Pulse 80 Resp 16 B/P (MAP) 121/83 Pulse Ox 100 O2 Flow Rate 0 Medical Decision Making Findings This otherwise well appearing 39-year-old male presented with rash to left arm, left chest, abdomen, and right leg. Rash is consistent with poison oak dermatitis the patient's report of recent poison oak exposure. There is no evidence of rapidly progressing symptoms, crepitus, pain out of proportion, pain away from site or other signs/symptoms concerning for necrotizing fasciitis or myositis. No mucosal involvement, blisters or bullae, sloughing skin, or appearance concerning for SJS, TEN, SSSS, pemphigus vulgaris, or bullous pemphigoid. No airway compromise, angioedema or systemic signs/symptoms concerning for anaphylaxis. The patient is well-appearing and is hemodynamically stable. I discussed with patient regarding potential diagnosis and discharge plan. Patient given strict return precautions including rapidly progressing symptoms, pain out of proportion/severe pain, mucosal involvement, and/or fever>100.4. Differential Dx:Considerations: Include: Abscess, Atopic dermatitis, Candidiasis, Contact dermatitis, Erysipelas, Herpes zoster, Herpes simplex, Psoriaisis, Scabies, Viral exanthema, Other (Cellulitis) Departure Disposition: HOME / SELF CARE / HOMELESS Impression: Primary Impression: Poison oak dermatitis Condition: Improved Discharge Instructions: Poison [place] Dermatitis, [id number] Additional Instructions: Please take the prescribed prednisone for your poison oak rash. Please follow up with your primary care provider in the next few days. Please return to the emergency department for any new or worsening concerning symptoms. Referrals: NO PRIMARY CARE PROVIDER (PCP) Prescriptions Prednisone* (Prednisone*) 20 Mg Tablet 3 TAB PO DAILY for 5 Days, #15 TAB Prov: JASE ARREGUIN 01/29/25 Education Educated: Patient Educated regarding: diagnosis, treatment, prognosis, need for follow up Signature Scribe Signature: No scribe Attestation: The note accurately reflects work and decisions made by me.INGRID Bess 01/29/25 22:09 JASE ARREGUIN Jan 29, 2025 13:31
== END 2025-01-29 13:44 | disposition home or self-care (01) ==
LOC: ER 13:14
DX: L23.7 Allergic contact dermatitis due to plants, except food (principal); G43.909 Migraine, unspecified, not intractable, without status migrainosus; K21.9 Gastro-esophageal reflux disease without esophagitis; F41.9 Anxiety disorder, unspecified; F15.90 Other stimulant use, unspecified, uncomplicated; Z88.8 Allergy status to other drugs, medicaments and biological substances; Z79.899 Other long term (current) drug therapy; Z72.89 Other problems related to lifestyle; Z60.2 Problems related to living alone
CPT/HCPCS: 99283

== ENCOUNTER 2025-02-09 02:51 | Emergency (ER) | payer MEDICAID ==
[~2025-02-09] VITALS: Ht 182.9 cm; Wt 88.2 kg
[2025-02-09 02:54] VITALS: BP 121/65; PULSE 99; RESP 15; TEMP 96.8; O2SAT 100
== END 2025-02-09 05:10 | disposition left against medical advice (07) ==
LOC: ER 02:52
DX: G43.909 Migraine, unspecified, not intractable, without status migrainosus (principal); Z53.21 Procedure and treatment not carried out due to patient leaving prior to being seen by health care provider; Z88.8 Allergy status to other drugs, medicaments and biological substances

== ENCOUNTER → 2025-02-16 | Emergency (ER) | payer MEDICAID ==
[~2025-02-16] VITALS: Ht 185.4 cm; Wt 88.6 kg
[2025-02-16 06:09] VITALS: TEMP 98.7
--- NOTE | 2025-02-16 06:31 | Physician Documentation ---
History of Present Illness ~ Chief Complaint: Head Pain Stated Complaint: HEADACHE Time Seen by MD: 06:19 Primary Medical Doctor: [facility] HPI This is a 39-year-old gentleman who presents for evaluation of frontal headache for about a week, waxing and waning, intermittent, no particular palliating or aggravating factors, not accompanied with photophobia, phonophobia. Did not attempt to treat it with the eating or [id number] medications. Concern of the head was not going away. The headache occasionally wakes him up from sleep. It is not thunderclap headache, not the worst headache of life, no loss of consciousness, no focal neurologic deficits when inquired in plain Pashto. Reports occasional blurry vision. Denies any blindness. Denies chest pain or difficulty breathing, nausea, vomiting, diarrhea, abdominal pain. He endorses the drug use and alcohol use. Medication Reconciliation Allergies: Coded Allergies: bupropion (Verified Allergy, Unknown, swelling,hives, 02/16/25) lurasidone (Verified Allergy, Unknown, swelling,hives, 02/16/25) Scheduled Prednisone* (Prednisone*), 3 TAB PO DAILY Past Medical History Past Medical History: Migraine, GERD, MRSA Abscess, Anxiety Past Surgical History: no surgical history Alcohol Use: Occasionally Drug Use: methamphetamine Lives with: Alone Lives In: Home Occupation: employed Review of Systems ROS 10 point review of systems was performed and unless noted above in HPI is negative for acute process/complaint. Physical Exam Vital Signs: Temperature: 98.7, Source: Oral, Heart Rate: 110, Respiratory Rate: 19, BP: 130/97, Pulse Oximetry: 100, Weight: 88.640 Physical Exam GENERAL: Awake, alert, oriented, GCS 15, no apparent distress, non-toxic appearing, answers questions, follows commands appropriately. Examined in bed 11. HEENT: Atraumatic, normocephalic, pupils equal, extraocular muscles intact, sclerae anicteric, mucus membranes moist, oropharynx is clear, no stridor. NECK: supple, full active range of motion, trachea midline, no thyromegaly, no lymphadenopathy, no JVD. CARDIOVASCULAR: regular rate/rhythm, no murmurs/gallops/rubs, Pulses are 2+ in all extremities and symmetric. Capillary refill less than 2 seconds. PULMONARY: Nonlabored, good air movement ,no respiratory distress, speaking in full sentences, clear to auscultation bilaterally, no wheezing, no ronchi, no rales, no accessory muscle use. GASTROINTESTINAL: Soft, non-tender, non-distended, normal active bowel sounds, no organomegaly, no pulsatile masses, no CVA tenderness. NEUROLOGIC: Lucid with normal mental status. Normal facial symmetry. Moves all extremities symmetrically and with purpose. No truncal ataxia. Speech is fluid without evidence of dysarthria or aphasia, no focal deficits appreciated. MUSCULOSKELETAL: There is full range of motion of all extremities. There is no joint pain or joint swelling or joint erythema. There is no muscle pain or tenderness or swelling. EXTREMITIES: warm, well-perfused, no cyanosis, no clubbing, no edema, no acute deformities. Skin: warm, dry, no rashes or lesions, no jaundice, no petechiae orpurpura. No ecchymosis. PSYCHIATRIC: Normal affect, normal insight, normal concentration. Focused exam: [] Progress Results/Orders Results/Orders Orders - BE ÁLVAREZ DO Ct Head (02/16/25 06:30) Completed Orders - BE ÁLVAREZ DO Ct Head (02/16/25 06:30) Normal Saline 1000ml (Sodium Chloride 10 (02/16/25 06:15) Ketorolac Trometh 30mg/Ml Vial (Toradol (02/16/25 06:15) Medications Received in ER Medications (Trade) Dose Ordered Sig/Jose Route PRN Reason Start Time Stop Time Status Last Admin Dose Admin Sodium Chloride 1,000 ml @ 1,000 mls/hr ONCE ONCE IV 02/16/25 06:15 02/16/25 07:14 DC 02/16/25 06:34 1,000 MLS/HR (Toradol inj. 30mg/ml) 30 mg ONCE ONCE IV 02/16/25 06:15 02/16/25 06:16 DC 02/16/25 06:34 30 MG Vital Signs 02/16/25 02/16/25 02/16/25 02/16/25 06:07 06:09 06:11 06:34 Temp 97.7 98.7 Pulse 105 91 110 Resp 19 18 19 15 B/P (MAP) 130/97 140/78 130/97 (108) Pulse Ox 100 99 100 Medical Decision Making Findings Facility Status: ED Holds, RME process The plan was discussed with the patient, who demonstrates clear understanding of the plan and is in agreement with the plan unless otherwise noted in the chart. All questions have been answered, all concerns were addressed unless otherwise documented. I was available throughout their ED stay for frequent reassessment and questions. Differential Diagnoses (considered and possible or likely): [Tension headache, migraine headache, sinusitis, less likely trigeminal neuralgia, less likely cluster headache, unlikely subdural subarachnoid, less likely intracranial neoplasm] ??Differential Diagnoses (considered and unlikely, not requiring evaluation currently): [No evidence of lateralizing signs. No reported trauma. Not consistent with glaucoma.] MDM Data Please see [facility] for the following: Independent Historians and external Records Review. Historian: [Patient] Independent Historians: ?[Record review] Medication Management: [Reviewed medication list] Social History and determinants: [Reviewed] Please see the body of the note for the following: Any independent interpretations of ECG, imaging studies. All vitals signs/haemodynamics, ordered tests were independently reviewed and interpreted by myself. Nursing triage complaint and vitals reviewed, additional nursing notes were reviewed as available and I agree unless otherwise noted or documented in cont radiction in the chart Vital Signs: Independently reviewed Labs: Independently interpreted Imaging: Independently interpreted Old Medical Records: Independently reviewed, see [facility] for relevant summary and information Pulse Oximetry: [99%] interpreted as [normal on room air] by me [Bartender Server: Tachycardic Rate, Regular rhythm, no ectopy, sinus tachycardia. reviewed and interpreted by me] Additionally notably showing: [Initially tachycardic, improved with fluids and rest. CT shows no acute intracranial process] Tests considered but not ordered include: [Blood work has been considerably at his presentation is not consistent with meningitis or encephalitis] Social Determinants of Health Impact: Patient was evaluated in [facility], or [facility] [place] to healthcare due to below par ratio of patient to medical providers. [] Comorbid Conditions Impacting Present Evaluation and Care/Treatment: [None] Management Discussions with other Healthcare Providers: [None] Treatment and Disposition Medication Management (Given or considered): [Fluid resuscitation was provided for treatment of clinically and/or laboratory apparent dehydration. Pain management.]. See EMR for details Consideration for Hospitalization/Escalation/Deescalation of Care: Admission for observation has been considered, [however the patient is able to tolerate p.o., their symptoms are controlled, they are able to rely on oral medications, and their chief complaint/diagnosis can be managed on outpatient basis.] ?ED Course:?[Improved] ?Shared decision making:?[Patient is hemodynamically stable for discharge home with follow with their primary care provider. [ ] Specific and cautious return precautions provided and discussed with full understanding. Any incidental findings were also discussed and follow up recommendations given. [] All questions answered. Patient/family were able to verbalize back return precautions. Patient/family agree to plan. Copies of imaging and laboratory studies were provided.] Code status:?FULL Please see the full Electronic Medical Record for full details of nursing documentation, medications list, other records of complete past medical history and conditions, vital signs, laboratory studies, and any radiologic study inte rpretations by radiologists. Portions of this note were completed using [employer] dictation software and as a result there may exist minor errors in spelling. I have reviewed elements of past family and social history and agree as included in note. Departure Disposition: 01 HOME / SELF CARE / HOMELESS Impression: Primary Impression: Headache Condition: Improved Discharge Instructions: Headache Education Educated: Patient Educated regarding: diagnosis, treatment, prognosis, need for follow up Signature Scribe Signature: No scribe Attestation: This note accurately reflects clinical decisions, work performed by myself, DO HENRI Arellano NICHOLAS M DO Feb 16, 2025 06:31
[2025-02-16] MEDS: normal saline 1000ml 1,000 ML IV ONE (06:34)
[2025-02-16] MEDS: ketorolac trometh 30MG/ML vial 30 MG/ML VIAL IV ONE (06:34)
--- NOTE | 2025-02-16 07:14 | RADIOLOGY REPORT ---
CLINICAL INFORMATION: Headache. TECHNIQUE: Axial imaging was obtained through the brain without contrast. Coronal and sagittal reform atted images were obtained, reviewed, and stored. Images were reviewed in brain and bone windows. Al l CT scans at this medical facility are performed using dose modulation techniques as appropriate to a performed exam including the following: Automated exposure control was utilized; adjustment of the MA and/or KV according to patient size; and use of iterative reconstruction technique. CTDIvol = 66.8 2 mGy DLP = 1190.83 mGy-cm COMPARISON: None FINDINGS: There is no acute intracranial hemorrhage. No mass effect or midline shift. The ventricles and sulci are within normal limits in size for age. Basal cisterns are patent. The calvarium is unre markable. Paranasal sinuses and mastoid air cells are clear. IMPRESSION: No CT evidence of acute intracranial abnormality.
[2025-02-16 08:25] VITALS: BP 126/64; PULSE 90; O2SAT 99
[2025-02-16 08:29] VITALS: RESP 13
== END | disposition home or self-care (01) ==
LOC: ER 15:33
DX: R51.9 Headache, unspecified (principal); F41.9 Anxiety disorder, unspecified; F15.90 Other stimulant use, unspecified, uncomplicated; Z88.8 Allergy status to other drugs, medicaments and biological substances
CPT/HCPCS: 70450; 96361; 96374; 99285; J1885; J7030